=== PATIENT | female | born 1945 | race Caucasian/White ===

== ENCOUNTER 2022-09-29 09:20 | Day surgery (SDC) | payer MEDICARE, OTHER, SELFPAY ==
[2022-09-22 15:11] VITALS: BMI 42.1
--- NOTE | 2022-09-28 13:21 | P.PNAN_ITS ---
Anes - Initial Pre Proc Eval Procedure: Operation Date: 09/29/22 10:30 Proposed Procedures p Cataract Extraction with Lens Implant-Left Eye - Marques Barillas MD Date/Time: 09/28/22 13:21 Surgeon: Marques Barillas MD Pre Op Diagnosis: Cataract Left Eye Patient Data Age: 76 Gender: F Height: 1.6 m Weight: 108 kg Allergies Allergy/AdvReac Type Severity Reaction Status Date / Time codeine Allergy Intermediate HIVES Verified 04/19/19 18:35 Home Medications Medication Instructions Recorded Confirmed Type anastrozole 1 mg tablet 1 mg PO DAILY 09/22/22 09/22/22 History atorvastatin 40 mg tablet 40 mg PO DAILY 09/22/22 09/22/22 History furosemide 20 mg tablet 20 mg PO DAILY 09/22/22 09/22/22 History Patient hx anesthesia problems: none Family hx anesthesia problems: none Results Review: All pre-operative results and documents have been reviewed as part of the pre- operative evaluation. [facility] Past Medical History Medical History (Updated 09/28/22 @ 13:22 by Vinicio Pace DO) Breast cancer Hyperlipidemia Social History Social History Smoking status: Never smoker Alcohol intake: never Substance use: never Substance use type: does not use Living arrangements: with family Spiritual care concerns: No Anes - Eval Final PreProcedure Day of Procedure 09/28/22 13:21 Patient weight: morbidly obese Heart: regular rate and rhythm Lungs: clear to auscultation and normal air movement Airway: Mallampati scale class II Neurological: alert and oriented Last oral intake: >/= 8 hours ASA classification: III Emergent: no Anesthetic plan: proceed Anesthesia type and monitoring: monitored anesthesia care and standard monitoring Results Review: All pre-operative results and documents have been reviewed as part of the pre- operative evaluation. Informed Consent: The patient's anesthetic plan and its attendant risks and benefits were discussed with the patient/family/POA. Questions were solicited and answers provided to the satisfaction of the patient/family/POA.
--- NOTE | 2022-09-29 08:59 | WPDHPUPDATE1 ---
History and Physical Update Update Date/Time: 09/29/22 08:59 History and Physical has been reviewed, including an updated exam of the patient. There are NO changes in the patient's condition. Risks, benefits, and alternatives have been discussed and questions answered. Patient agrees to proceed with procedure.
[2022-09-29 10:07] VITALS: BP 155/88; PULSE 95; RESP 16; TEMP 36.8; O2SAT 99
[2022-09-29] MEDS: TETRACAINE HCL 0.5% OPHTH SOLN 4 ML BTL 1 DROP AFFCTD EYE ×3 (10:32→10:42)
[2022-09-29] MEDS: OFLOXACIN 0.3% OPHTH SOLN 5 ML BTL 1 DROP AFFCTD EYE (10:32)
[2022-09-29] MEDS: LIDOCAINE HCL 2% JELLY 5 ML TUBE 1 APPLIC AFFCTD EYE (11:22)
[2022-09-29] MEDS: LIDOCAINE HCL 1% PF INJ 5 ML VIAL 1 ML INTRAOCULA (11:25)
[2022-09-29] MEDS: NEOMYCIN/POLYMYXIN/DEXAMETH OP OINT 3.5 GM TUBE 1 APPLIC AFFCTD EYE (11:43)
[2022-09-29] MEDS: HOME MEDICATION 1 EACH AFFCTD EYE (11:43)
[2022-09-29 11:49] VITALS: BP 154/78; PULSE 89; RESP 14; O2SAT 99
[2022-09-29] MEDS: acetaZOLAMIDE TAB 250 MG TABLET PO (12:00)
--- NOTE | 2022-09-29 12:57 | W.PM.PROC2 ---
Procedure Note - Detailed Date of Procedure 09/29/22 Pre-op Diagnosis 1) Cataract Left Eye 2) Miotic pupillary cyst Left eye Post-op Diagnosis Same Procedure Performed Complex Cataract Extraction (by Phacoemulsification) and lntraocular Lens Implant Surgeon Marques Barillas MD Anesthesia MAC Description of Procedure The eye was anesthetized with topical 0.75% bupivacaine. After intravenous sedation and placement of monitors, the patient was prepped and draped in the usual sterile manner. A lid speculum was placed. A paracentesis was made, and preservative free 1% lidocaine was instilled in the anterior chamber. The anterior chamber was then filled with Viscoat viscoelastic and a Malyugin ring was placed. A melvin keratome was used to create the wound. Continuous tear anterior capsulotomy was performed. The lens was hydro dissected before being removed with phacoemulsification. The remaining lenticular cortex was removed with aspiration. The capsular bag was polished and filled with viscoelastic material. An intraocular lens was chosen, inspected, irrigated and placed within the capsular bag where it was seen to be centered and stable. The ring was removed and viscoelastic material was aspirated. The wound was closed and found to be watertight. Ciloxan drops were placed in the eye. The speculum was removed. A Silveira shield was applied. The patient tolerated the procedure well and left the operating room in satisfactory condition. Implants See chart Complications None Condition Stable Disposition Same day
--- NOTE | 2022-09-29 13:03 | WPDANESPN ---
Anes - Prog Note Post-Op Date/Time: 09/29/22 13:03 Cardiovascular status: normal Respiratory status: normal Airway patency: baseline Mental status: baseline Post-Op hydration status: normal Vital Signs: Last Vital Signs Temp 36.8 C 09/29/22 10:07 Pulse 89 09/29/22 11:49 Resp 14 09/29/22 11:49 BP 154/78 H 09/29/22 11:49 Pulse Ox 99 09/29/22 11:49 O2 Del Method Room Air 09/29/22 11:49 Pain Score (VAS): 0 Post-procedural complaints: none Patient Feedback: Patient satisfied with anesthetic care. Other Findings: Patient vital signs back to baseline. Patient denies nausea and vomiting. Patient's pain under control. Patient OK for discharge.
== END 2022-09-29 12:19 | disposition home or self-care (01) ==
PROVIDERS: PCP Family Medicine; Visit Provider Student in an Organized Health Care Education/Training Program
PROC: (CPT 66983; principal; 2022-09-29 10:30)
DX: H25.12 Age-related nuclear cataract, left eye (principal)
CPT/HCPCS: 66982

== ENCOUNTER 2022-10-13 08:46 | Day surgery (SDC) | payer MEDICARE, OTHER, SELFPAY ==
[2022-10-05 12:41] VITALS: BMI 42.5
--- NOTE | 2022-10-13 07:27 | WPDHPUPDATE1 ---
History and Physical Update Update Date/Time: 10/13/22 07:27 History and Physical has been reviewed, including an updated exam of the patient. There are NO changes in the patient's condition. Risks, benefits, and alternatives have been discussed and questions answered. Patient agrees to proceed with procedure.
--- NOTE | 2022-10-13 08:59 | WPDANESEPPF ---
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 Patient Data Age: 77 Gender: F Height: 1.6 m Weight: 109 kg Allergies Allergy/AdvReac Type Severity Reaction Status Date / Time codeine Allergy Intermediate HIVES Verified 10/05/22 12:41 Home Medications Medication Instructions Recorded Confirmed Type anastrozole 1 mg tablet 1 mg PO DAILY 09/22/22 10/05/22 History atorvastatin 40 mg tablet 40 mg PO DAILY 09/22/22 10/05/22 History furosemide 20 mg tablet 20 mg PO DAILY 09/22/22 10/05/22 History omeprazole 40 mg capsule,delayed 40 mg PO DAILY 10/05/22 10/05/22 History release Patient hx anesthesia problems: none Family hx anesthesia problems: none Results Review: All pre-operative results and documents have been reviewed as part of the pre-operative evaluation. [facility] Past Medical History Medical History (Updated 09/28/22 @ 13:22 by Vinicio Pace DO) Breast cancer Hyperlipidemia Social History Social History Smoking status: Never smoker Second hand tobacco smoke exposure: No Alcohol intake: never Substance use: current Substance use type: does not use Living arrangements: with family Spiritual care concerns: No Anes - Eval Final PreProcedure Day of Procedure 10/13/22 08:59 Patient weight: morbidly obese Heart: regular rate and rhythm Lungs: clear to auscultation and normal air movement Airway: Mallampati scale class II Neurological: alert and oriented Last oral intake: >/= 8 hours ASA classification: III Emergent: no Anesthetic plan: proceed Anesthesia type and monitoring: monitored anesthesia care and standard monitoring Results Review: All pre-operative results and documents have been reviewed as part of the pre-operative evaluation. Informed Consent: The patient's anesthetic plan and its attendant risks and benefits were discussed with the patient/family/POA. Questions were solicited and answers provided to the satisfaction of the patient/family/POA.
[2022-10-13 09:15] VITALS: BP 171/88; PULSE 92; RESP 20; TEMP 37; O2SAT 98
[2022-10-13] MEDS: TETRACAINE HCL 0.5% OPHTH SOLN 4 ML BTL 1 DROP AFFCTD EYE ×3 (09:35→09:45)
[2022-10-13] MEDS: OFLOXACIN 0.3% OPHTH SOLN 5 ML BTL 1 DROP AFFCTD EYE (09:35)
[2022-10-13] MEDS: LIDOCAINE HCL 2% JELLY 5 ML TUBE 1 APPLIC AFFCTD EYE (10:07)
[2022-10-13] MEDS: HOME MEDICATION 1 EACH AFFCTD EYE (10:21)
[2022-10-13] MEDS: NEOMYCIN/POLYMYXIN/DEXAMETH OP OINT 3.5 GM TUBE 1 APPLIC AFFCTD EYE (10:21)
[2022-10-13] MEDS: LIDOCAINE HCL 1% PF INJ 5 ML VIAL 1 ML INTRAOCULA (10:21)
[2022-10-13 10:40] VITALS: BP 145/75; PULSE 77; RESP 20; O2SAT 99
[2022-10-13] MEDS: acetaZOLAMIDE TAB 250 MG TABLET PO (10:50)
--- NOTE | 2022-10-13 11:40 | W.PM.PROC2 ---
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 After intravenous sedation and placement of monitors, the patient was prepped and draped in the usual sterile manner. A lid speculum was placed. A paracentesis was made, and preservative free 1% lidocaine was instilled in the anterior chamber. The anterior chamber was then filled with Viscoat viscoelastic and a Malyugin ring was placed. A melvin keratome was used to create the wound. Continuous tear anterior capsulotomy was performed. The lens was hydro dissected before being removed with phacoemulsification. The remaining lenticular cortex was removed with aspiration. The capsular bag was polished and filled with viscoelastic material. An intraocular lens was chosen, inspected, irrigated and placed within the capsular bag where it was seen to be centered and stable. The ring was removed, and viscoelastic material was aspirated. The wound was closed and found to be watertight. Ciloxan drops were placed in the eye. The speculum was removed. A Silveira shield was applied. The patient tolerated the procedure well and left the operating room in satisfactory condition. Implants See chart Complications None Condition Stable Disposition Same day
--- NOTE | 2022-10-13 11:47 | WPDANESPN ---
Anes - Prog Note Post-Op Date/Time: 10/13/22 11:47 Cardiovascular status: normal Respiratory status: normal Airway patency: baseline Mental status: baseline Post-Op hydration status: normal Vital Signs: Last Vital Signs Temp 37.0 C 10/13/22 09:15 Pulse 77 10/13/22 10:40 Resp 20 10/13/22 10:40 BP 145/75 H 10/13/22 10:40 Pulse Ox 99 10/13/22 10:40 O2 Del Method Room Air 10/13/22 10:40 Pain Score (VAS): 0 Post-procedural complaints: none Patient Feedback: Patient satisfied with anesthetic care.
== END 2022-10-13 11:05 | disposition home or self-care (01) ==
PROVIDERS: PCP Family Medicine; Visit Provider Student in an Organized Health Care Education/Training Program
PROC: (CPT 66983; principal; 2022-10-13 09:50)
DX: H25.11 Age-related nuclear cataract, right eye (principal)
CPT/HCPCS: 66982

== ENCOUNTER 2023-09-03 14:28 | Emergency (ER) | payer MEDICARE, OTHER, SELFPAY ==
[2023-09-03 14:54] VITALS: BP 170/81; PULSE 98; RESP 16; TEMP 36.3; O2SAT 96
--- NOTE | 2023-09-03 15:56 | ED.EYEPROB ---
HPI - Eye Problem General Chief complaint: Eye Problems Stated complaint: Eye Irritation Time Seen by Provider: 09/03/23 14:31 Source: patient Mode of arrival: ambulatory Limitations: no limitations History of Present Illness HPI Narrative: Ondina is a 77-year-old female patient presenting to the clinic today with complaints left eye irritation x2 days. She reports that her left upper eyelid pain/swelling x 2 days ago and now she is having redness to the lower orbit. Is concerned about infection/pinkeye. Reports that she noticed some yellow discharge coming from the eye. No fever or chills. Related Data Home Medications Medication Instructions Recorded Confirmed anastrozole 1 mg tablet 1 mg PO DAILY 09/22/22 09/03/23 atorvastatin 40 mg tablet 40 mg PO DAILY 09/22/22 09/03/23 furosemide 20 mg tablet 20 mg PO DAILY 09/22/22 09/03/23 omeprazole 40 mg capsule,delayed 40 mg PO DAILY 10/05/22 09/03/23 release Allergies Allergy/AdvReac Type Severity Reaction Status Date / Time codeine AdvReac Mild HIVES Verified 09/03/23 16:01 Review of Systems Review of Systems: Pertinent positives per HPI. Patient denies any fever, chills, rash, headache, visual changes, dizziness, cough, shortness of breath, chest pain, palpitations, nausea, vomiting, diarrhea, constipation, abdominal pain, or any urinary issues. [facility] Past Medical History Medical History (Updated 09/03/23 @ 16:10 by Fish Hatch APRN) Breast cancer Hyperlipidemia Social History Social History Smoking status: Never smoker Second hand tobacco smoke exposure: No Alcohol intake: never Substance use: current Substance use type: does not use Living arrangements: with family Spiritual care concerns: No Comments At the time of my signature, I reviewed and agree with the nursing past medical, surgical, social, and family history. There is no relevant family history pertinent to the patient complaint. Exam Narrative: General: Well-developed, obese, in no apparent distress Head: Normocephalic, atraumatic Eyes: Pupils equally round and reactive to light bilaterally, EOM intact, sclera and conjunctive clear, no discharge, right lids normal, left upper lid with a stye to the mid lid near the eyelashes, tender to palpation over this area, redness and swelling noted to the left upper eyelid as well as to the lateral inferior eye orbit with mild tenderness to palpation Ears: TMs intact and clear, ear canals clear, no drainage, grossly hearing normal. Nose: Nares patent, no discharge, no inflammation, no sinus tenderness. Mouth: Oral pharynx without lesions or masses, good dentition, MMM. Neck: Supple, trachea midline, no enlargement of anterior or posterior cervical nodes, no thyroid masses or goiter palpable. Cardio: Regular rate and rhythm, s1 and s2 normal, no murmur appreciated. Resp: Clear to auscultation bilaterally, no rhonchi, rales, wheezing or rubs Course Course Emergency Course: Portions of this record may have been created with voice recognition software. Level of Care: Express Care Visit Vital Signs Vital signs: Vital Signs Temperature 36.3 C L 09/03/23 14:54 Pulse Rate 98 09/03/23 14:54 Respiratory Rate 16 09/03/23 14:54 Blood Pressure 170/81 H 09/03/23 14:54 Pulse Oximetry 96 09/03/23 14:54 Oxygen Delivery Room Air 09/03/23 14:54 Temperature 36.3 C L 09/03/23 14:54 Pulse Rate 98 09/03/23 14:54 Respiratory Rate 16 09/03/23 14:54 Blood Pressure 170/81 H 09/03/23 14:54 Pulse Oximetry 96 09/03/23 14:54 Oxygen Delivery Room Air 09/03/23 14:54 Vital signs reviewed MDM - Eye Problem MDM Narrative Medical decision making narrative: At the time of visit patient is resting comfortably on the exam table. Patient appears to be nontoxic. Plan: I suspect patient has a left upper eyelid external stye with early periorbital cellulitis. Prescription for Augmentin, Bactrim,
== END 2023-09-03 16:16 | disposition home or self-care (01) ==
PROVIDERS: Emergency Provider Nurse Practitioner Family; PCP Family Medicine
DX: H05.012 Cellulitis of left orbit (principal); H00.014 Hordeolum externum left upper eyelid; E78.5 Hyperlipidemia, unspecified; Z85.3 Personal history of malignant neoplasm of breast
CPT/HCPCS: 99213; G0463